=== PATIENT | female | born 1965 | race African-American/Black ===

== ENCOUNTER 2021-06-03 15:01 | Outpatient (CLI) | payer BC | END 2021-06-03 15:02 | disposition home or self-care (01) | LOC: CSHMRI 15:01 | PROVIDERS: ATTEND Orthopaedic Surgery | DX: M75.102 Unspecified rotator cuff tear or rupture of left shoulder, not specified as traumatic (principal); S43.432A Superior glenoid labrum lesion of left shoulder, initial encounter; M25.412 Effusion, left shoulder; M25.812 Other specified joint disorders, left shoulder; M62.89 Other specified disorders of muscle ==